=== PATIENT | male | born 1990 | race Caucasian/White ===

== ENCOUNTER 2025-08-23 15:32 | Emergency (ER) | payer MEDICAID, OTHER ==
[~2025-08-23] VITALS: Ht 175.3 cm; Wt 64.8 kg
--- NOTE | 2025-08-23 15:49 | ECG ---
[facility] Test Date: 2025-08-23 Test Time: 15:44:15 Pat Name: ALIZE HEARN Department: [facility] ED Patient ID: [facility]-[id number] Room: Gender: M Timber Cutter: isreal : 1990 Requested By: NOA GTZ Order Number: [id number] Reading MD: Joshua Bella Measurements Intervals Bozman Rate: 67 P: 40 VT: 141 QRS: 77 QRSD: 91 T: 68 QT: 375 QTc: 396 Interpretive Statements Sinus rhythm Baseline wander in lead(s) V2 Electronically Signed On 08-25-2025 22:11:40 PDT by Joshua Belal Please click the below link to view image of tracing.
--- NOTE | 2025-08-23 17:03 | ED.PDOC ---
History of Present Illness HPI Comments 35-year-old male came to the ER stating that he got electric shock while pulling out a plug of spray here. He saw some sparkles for which he went to doubt lid pull the plug on when he got electrocuted. No injury to the left hand which he used to pull the blood. He does work at a [employer] facility. Denies any other symptoms. Chief Complaint: Electrical Injury Time Seen by MD: 15:43 Reviewed Notes: Nurses Notes, Medications, Allergies Allergies: Coded Allergies: NO KNOWN ALLERGIES (Unverified , 08/23/25) Information Source: Patient Mode of Arrival: Ambulatory Severity: Mild Timing: Hours Duration: Since onset Past Medical History PAST MEDICAL HISTORY: Denies Surgical History: Denies all surgeries Social History Smoker: Cigarettes Alcohol: Denies ETOH Use Drugs: Marijuana Constitutional: denies: chills, diaphoresis, fatigue, fever, malaise, sweats, weakness, others EENTM: denies: blurred vision, double vision, ear bleeding, ear discharge, ear drainage, ear pain, ear ringing, eye pain, eye redness, hearing loss, mouth pain, mouth swelling, nasal discharge, nose bleeding, nose congestion, nose pain, photophobia, tearing, throat pain, throat swelling, voice changes, others Respiratory: denies: cough, hemoptysis, orthopnea, SOB at rest, shortness of breath, SOB with excertion, stridor, wheezing, others Cardiovascular: denies: chest pain, dizzy spells, diaphoresis, Dyspnea on exertion, edema, irregular heart beat, left arm pain, lightheadedness, palpitations, PND, syncope, others Gastrointestinal: denies: abdomen distended, abdominal pain, blood streaked bowels, constipated, diarrhea, dysphagia, difficulty swallowing, hematemesis, melena, nausea, poor appetite, poor fluid intake, rectal bleeding, rectal pain, vomiting, others Genitourinary: denies: burning, dysuria, flank pain, frequency, hematuria, incontinence, penile discharge, penile sore, pain, testicle pain, testicle swelling, urgency, others Neurological: denies: dizziness, fainting, headache, left sided numbness, left sided weakness, numbness, paresthesia, pre-existing deficit, right sided numbness, right sided weakness, seizure, speech problems, tingling, tremors, weakness, others Musculoskeletal: denies: back pain, gout, joint pain, joint swelling, muscle pain, muscle stiffness, neck pain, others Integumetry: denies: bruises, change in color, change in hair/nails, dryness, laceration, lesions, lumps, rash, wounds, others Allergic/Immunocompromised: denies: Difficulty Healing, Frequent Infections, Hives, Itching, others Hematologic/Lymphatic: denies: anemia, blood clots, easy bleeding, easy bruising, swollen glands, others Endocrine: denies: excessive hunger, excessive sweating, excessive thirst, excessive urination, flushing, intolerance to cold, intolerance to heat, unexplained weight gain, unexplained weight loss, others Psychiatric: denies: anxiety, bipolar disorder, depression, hopeless, panic disorder, schizophrenia, sleepless, suicidal, others Physical Exam General Appearance: Moderate Distress HEENT: Normal ENT Inspection, Pharynx Normal, TMs Normal Neck: Full Range of Motion, Non-Tender, Normal, Normal Inspection Respiratory: Chest Non-Tender, Lungs Clear, No Accessory Muscle Use, No Respiratory Distress, Normal Breath Sounds Cardiovascular: No Edema, No JVD, No Murmur, No Gallop, Normal Peripheral Pulses, Regular Rate/Rhythm Breast Exam: Deferred Gastrointestinal: No Organomegaly, Non Tender, No Pulsatile Mass, Normal Bowel Sounds, Soft Genitalia: Deferred Pelvic: Deferred Rectal: Deferred Extremities: No calf tenderness, Normal capillary refill, Normal inspection, Normal range of motion, Non-tender, No pedal edema Musculoskeletal : Apperance: Normal Neurologic: Alert, tie presser II-XII nml as Tested, No Motor Deficits, Normal Affect, Normal Mood, No Sensory Deficits Cerebellar Function: Normal Reflexes: Normal Skin: Dry, Normal Color, Warm Peripheral Pulses: 3+ Radial (R), 3+ Radial (L) Lymphatic: No Adenopathy Was a procedure done? Was a procedure done?: No Differential Dx Considerations may include: Electric shock X-Ray, Labs, Meds, VS Vital Signs Date Time Temp Pulse Resp B/P (MAP) Pulse Ox O2 Delivery O2 Flow Rate FiO2 08/23/25 16:51 98.4 73 16 126/79 (95) 95 98.4 08/23/25 16:43 Room Air* 0 21 08/23/25 15:44 67 08/23/25 15:33 97.6 88 19 120/70 98 97.6 Lab Test 08/23/25 15:52 Range/Units Urine Opiates Screen Pending Urine Fentanyl Screen Pending Urine Barbiturates Screen Pending Urine Phencyclidine Screen Pending Urine Amphetamines Screen Pending Urine Benzodiazepines Screen Pending Urine Cocaine Screen Pending Urine Cannabinoids Screen Pending Patient alert. Vitals stable. No sign of distress. Answering questions. EKG reviewed does not show any acute changes. 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 Ambulating without difficulty pain States that he is feeling much better. Insists on going home. Was told to follow up with his primary care physician. Was told to come back if there is any problem. Time of 1ST Reevaluation: 16:59 Reevaluation 1ST: Improved Patient Education/Counseling: Diagnosis, Treatment, Prognosis, Need For Follow Up Family Education/Counseling: No Family Present SEPSIS Sepsis Screen Date sepsis recognized/suspect: Aug 23, 2025 Time Sepsis recognized/suspect: 1654 Recent Procedure: No On Antibiotic Therapy: No Respiratory Rate >20: No Heart Rate >90: No Temp<36 C (96.8 F) or >38.3 C: No SBP <90 or MAP <65 mmHG: No New Acute Mental Status Change: No Is the patient on CPAP, BIPAP,: No Physician Orders Electrocardigram (08/23/25 15:43) Drug Screen (08/23/25 15:52) Troponin-I Hs (08/23/25 16:50) Lorazepam Tablet (Ativan Tablet) (08/23/25 17:00) Vital Signs Date Time Temp Pulse Resp B/P (MAP) Pulse Ox O2 Delivery O2 Flow Rate FiO2 08/23/25 16:51 98.4 73 16 126/79 (95) 95 98.4 08/23/25 16:43 Room Air* 0 21 08/23/25 15:44 67 08/23/25 15:33 97.6 88 19 120/70 98 97.6 Departure 1 Departure Time of Disposition: 17:02 Impression: Primary Impression: Electric shock Qualified Codes: T75.4XXA - Electrocution, initial encounter Disposition: HOME / SELF CARE / HOMELESS Condition: Good Discharged With: Self Critical Care Note Critical Care Time?: No Stability Stability form required: No Heart Score Heart Score: Heart Score Response (Comments) Value History Slightly Suspicious 0 EKG Normal 0 Age <45 0 Risk Factors No known risk factors 0 Troponin Normal limit 0 Total 0 NOA GTZ MD Aug 23, 2025 17:03
[2025-08-23 17:09] LABS: Amphetamine Screen, Urine Neg (NEGATIVE); Barbiturate Scree,Urine Neg (NEGATIVE); Benzodiazephine Screen, Urine Neg (NEGATIVE); Cannabinoid Screen, Urine Pos (NEGATIVE); Cocaine Screen, Urine Neg (NEGATIVE); Opiate Scree,Urine Neg (NEGATIVE); Phencyclidine Screen, Urine Neg (NEGATIVE)
[2025-08-23] MEDS: LORazepam 0.5 MG TAB PO ONE (17:09)
[2025-08-23 18:55] VITALS: BP 120/82; PULSE 65; RESP 16; TEMP 98.6; O2SAT 100
== END 2025-08-23 18:59 | disposition home or self-care (01) ==
LOC: ER 15:32
DX: T75.4XXA Electrocution, initial encounter (principal); F17.210 Nicotine dependence, cigarettes, uncomplicated; W86.8XXA Exposure to other electric current, initial encounter; Y93.89 Activity, other specified; Y92.89 Other specified places as the place of occurrence of the external cause; Y99.8 Other external cause status
CPT/HCPCS: 36415; 80307; 84484; 93005

== ENCOUNTER 2025-10-30 10:12 | Emergency (ER) | payer OTHER ==
[~2025-10-30] VITALS: Ht 175.3 cm; Wt 62.4 kg
[2025-10-30 10:13] VITALS: BP 128/89; PULSE 62; RESP 18; TEMP 97.8; O2SAT 98
--- NOTE | 2025-10-30 10:47 | ED.PDOC ---
History of Present Illness(SKN HPI Comments 35 y/o M, presents to the ED for CC of right hand blister. Patient states, he has a right hand blister between the web of the 1st and 2nd phalanx x1week. Patient denies numbness, tingling, fever, or chills. Chief Complaint: Upper Extremity Time Seen by MD: 10:45 History of Present Illness: Nurses Notes, Medications, Allergies Allergies: Coded Allergies: NO KNOWN ALLERGIES (Unverified , 08/23/25) Information Source: Patient Mode of Arrival: Ambulatory Severity: Moderate Timing: Weeks Duration: Since onset Prehospital treatment: None Location: Hand (right) History of: None Associated Signs and Symptoms: None Past Medical History PAST MEDICAL HISTORY: Denies Surgical History: Denies all surgeries Social History Smoker: Cigarettes Alcohol: Denies ETOH Use Drugs: Marijuana Constitutional: denies: chills, diaphoresis, fatigue, fever, malaise, sweats, weakness, others EENTM: denies: blurred vision, double vision, ear bleeding, ear discharge, ear drainage, ear pain, ear ringing, eye pain, eye redness, hearing loss, mouth pain, mouth swelling, nasal discharge, nose bleeding, nose congestion, nose pain, photophobia, tearing, throat pain, throat swelling, voice changes, others Respiratory: denies: cough, hemoptysis, orthopnea, SOB at rest, shortness of breath, SOB with excertion, stridor, wheezing, others Cardiovascular: denies: chest pain, dizzy spells, diaphoresis, Dyspnea on exertion, edema, irregular heart beat, left arm pain, lightheadedness, palpitations, PND, syncope, others Gastrointestinal: denies: abdomen distended, abdominal pain, blood streaked bowels, constipated, diarrhea, dysphagia, difficulty swallowing, hematemesis, melena, nausea, poor appetite, poor fluid intake, rectal bleeding, rectal pain, vomiting, others Genitourinary: denies: burning, dysuria, flank pain, frequency, hematuria, incontinence, penile discharge, penile sore, pain, testicle pain, testicle swelling, urgency, others Neurological: denies: dizziness, fainting, headache, left sided numbness, left sided weakness, numbness, paresthesia, pre-existing deficit, right sided numbness, right sided weakness, seizure, speech problems, tingling, tremors, wea kness, others Musculoskeletal: denies: back pain, gout, joint pain, joint swelling, muscle pain, muscle stiffness, neck pain, others Integumetry: reports: others (right hand blister); denies: bruises, change in color, change in hair/nails, dryness, laceration, lesions, lumps, rash, wounds Allergic/Immunocompromised: denies: Difficulty Healing, Frequent Infections, Hives, Itching, others Hematologic/Lymphatic: denies: anemia, blood clots, easy bleeding, easy bruising, swollen glands, others Endocrine: denies: excessive hunger, excessive sweating, excessive thirst, excessive urination, flushing, intolerance to cold, intolerance to heat, unexplained weight gain, unexplained weight loss, others Psychiatric: denies: anxiety, bipolar disorder, depression, hopeless, panic disorder, schizophrenia, sleepless, suicidal, others All Other Systems: Reviewed and Negative Physical Exam General Appearance: No Apparent Distress, Normal HEENT: Normal ENT Inspection, Pharynx Normal Neck: Full Range of Motion, Non-Tender, Normal, Normal Inspection Respiratory: Chest Non-Tender, Lungs Clear, No Accessory Muscle Use, No Respiratory Distress, Normal Breath Sounds Cardiovascular: No Edema, No Murmur, No Gallop, Normal Peripheral Pulses, Regular Rate/Rhythm Breast Exam: Deferred Gastrointestinal: No Organomegaly, Non Tender, No Pulsatile Mass, Normal Bowel Sounds, Soft Genitalia: Deferred Pelvic: Deferred Rectal: Deferred Extremities: No calf tenderness, Normal capillary refill, Normal inspection, Normal range of motion, Non-tender, No pedal edema Musculoskeletal : Apperance: Normal Neurologic: Alert, audio technician II-XII nml as Tested, No Motor Deficits, Normal Affect, Normal Mood, No Sensory Deficits Cerebellar Function: Normal Reflexes: Normal Skin: Dry, Normal Color, Wounds (blister to the web between the right 1st and 2nd phalanx) Lymphatic: No Adenopathy Was a procedure done? Was a procedure done?: No Differential Diagnosis (INTG) Differential Diagnosis: Cellulitis, Contusion Differential Diagnosis: N/A Differential Diagnosis: Other (friction blister) Abscess: N/A Differential Diagnosis: N/A X-Ray, Labs, Meds, VS Vital Signs Date Time Temp Pulse Resp B/P (MAP) Pulse Ox O2 Delivery O2 Flow Rate FiO2 12/7/25 10:13 97.8 62 18 128/89 98 97.8 Time of 1ST Reevaluation: 11:15 Reevaluation 1ST: Unchanged Patient Education/Counseling: Diagnosis, Treatment Family Education/Counseling: No Family Present SEPSIS Sepsis Screen Date sepsis recognized/suspect: Oct 30, 2025 Time Sepsis recognized/suspect: 1014 Recent Procedure: No On Antibiotic Therapy: No Respiratory Rate >20: No Heart Rate >90: No Temp<36 C (96.8 F) or >38.3 C: No SBP <90 or MAP <65 mmHG: No New Acute Mental Status Change: No Is the patient on CPAP, BIPAP,: No Vital Signs Date Time Temp Pulse Resp B/P (MAP) Pulse Ox O2 Delivery O2 Flow Rate FiO2 10/30/25 10:13 97.8 62 18 128/89 98 97.8 Departure 1 Departure Time of Disposition: 12:18 (Patient with a small area of cellulitis around wound on the hand. We will discharge patient home with antibiotics.) Impression: Primary Impression: Cellulitis Additional Impression: Wound infection Disposition: HOME / SELF CARE / HOMELESS Condition: Stable Additional Instructions: Your wound can be best managed in the following way 1. Wash the wound with gentle soap such as Dove brand and water. 2. Cover the wound with bacitracin 3. Bandage the wound and keep them covered. 4. Avoid direct sunlight to the wound You should do the above twice per day. For pain you can take the followinam: Ibuprofen 400mg with food Noon: Acetaminophen 1000mg 4pm: Ibuprofen 400mg with food 8pm: Acetaminophen 1000mg You were prescribed antibiotics please take as directed If your symptoms worsen or you have any other concerns then please return to the ER. e-Prescriptions Sulfamethoxazole W/Trimethopri (Bactrim Ds Tablet) 1 Tab Tb 1 TAB PO BID for 5 Days, #10 TAB Prov: GAYATRI QUINN MD 10/30/25 Critical Care Note Critical Care Time?: No Stability Stability form required: No Heart Score Heart Score: Heart Score Response (Comments) Value History N/A 0 EKG N/A 0 Age N/A 0 Risk Factors N/A 0 Troponin N/A 0 Total 0 I personally scribed for GAYATRI QUINN MD ([email or web address]) on 10/30/25 at 10:47. Electronically submitted by Elizabeth Sandoval ([email or web address]). I personally scribed for GAYATRI QUINN MD ([facility] on 10/30/25 at 10:57. Electronically submitted by Elizabeth Sandoval ([email or web address]). I personally scribed for GAYATRI QUINN MD ([facility] on 10/30/25 at 11:18. Electronically submitted by Elizabeth Sandoval ([email or web address]). I personally scribed for GAYATRI QUINN MD ([facility] on 10/30/25 at 11:19. Electronically submitted by Elizabeth Sandoval ([email or web address]). GAYATRI QUINN MD Oct 30, 2025 10:47
[2025-10-30] MEDS ORDERED: BACDST PO (12:20)
== END 2025-10-30 12:50 | disposition home or self-care (01) ==
LOC: ER 10:12
DX: S60.521A Blister (nonthermal) of right hand, initial encounter (principal); F17.210 Nicotine dependence, cigarettes, uncomplicated; X58.XXXA Exposure to other specified factors, initial encounter; Y93.89 Activity, other specified; Y92.89 Other specified places as the place of occurrence of the external cause; Y99.8 Other external cause status